=== PATIENT | female | born 1985 | race Caucasian/White ===

== ENCOUNTER → 2022-12-30 09:53 | Outpatient (BNVA) | payer OTHER, SELFPAY | PROVIDERS: Visit Provider Physician Assistant | DX: S83.411A Sprain of medial collateral ligament of right knee, initial encounter (principal); S80.01XA Contusion of right knee, initial encounter; S39.013A Strain of muscle, fascia and tendon of pelvis, initial encounter; W08.XXXA Fall from other furniture, initial encounter | CPT/HCPCS: 99204 ==

== ENCOUNTER → 2023-01-08 15:26 | Outpatient (BNVA) | payer OTHER, SELFPAY | PROVIDERS: Visit Provider Physician Assistant | DX: S80.01XA Contusion of right knee, initial encounter (principal); W08.XXXA Fall from other furniture, initial encounter | CPT/HCPCS: 99213 ==

== ENCOUNTER 2023-01-20 19:30 | Outpatient (REF) | payer OTHER, SELFPAY ==
--- NOTE | ~2023-01-20 | MR_ITS ---
EXAMINATION: MR KNEE WITHOUT CONTRAST, LEFT CLINICAL INFORMATION: Left knee pain and swelling following a fall. Question patellar fracture, derangement. COMPARISON: Left knee radiographs dated 12/30/2022. TECHNIQUE: MRI of the knee without contrast was performed using routine sequences on a high-field scanner. FINDINGS: MENISCI: Medial Meniscus: Intact Lateral Meniscus: Intact LIGAMENTS: Cruciate: Increased T2 signal within the anterior cruciate ligament which could represent normal variation versus a grade 1 sprain. No measurable defect. Collateral: Intact EXTENSOR MECHANISM: Intact ARTICULAR CARTILAGE/BONE: Patellofemoral Compartment: Intact articular cartilage. No patellar contusion or fracture. Medial Compartment: Intact articular cartilage. Lateral Compartment: Intact articular cartilage. JOINT FLUID AND BURSAE: Trace joint effusion and trace Wallis's cyst. MR/MR knee LT wo con IMPRESSION: 1. Increased T2 signal within the anterior cruciate ligament which could represent normal variation versus a grade 1 sprain. No measurable ligament defect. 2. No meniscal tear. 3. No patellar contusion or fracture. 4. Trace joint effusion and trace Wallis's cyst.
== END 2023-01-20 19:31 | disposition home or self-care (01) ==
LOC: HO.MRI 19:30
PROVIDERS: Visit Provider Internal Medicine
DX: M22.3X2 Other derangements of patella, left knee (principal); W07.XXXA Fall from chair, initial encounter; Y93.9 Activity, unspecified; Y92.9 Unspecified place or not applicable; Y99.0 Civilian activity done for income or pay
CPT/HCPCS: 73721

== ENCOUNTER → 2023-01-27 13:08 | Outpatient (BNVA) | payer OTHER, SELFPAY | PROVIDERS: Visit Provider Physician Assistant | DX: M23.92 Unspecified internal derangement of left knee (principal) | CPT/HCPCS: 99214 ==